=== PATIENT | male | born 1970 ===

== ENCOUNTER 2017-04-09 08:10 | Outpatient (CLI) | payer OTHER | END 2017-04-09 08:25 | disposition home or self-care (01) | LOC: OFIC 805 08:10 | DX: H60.8X2 Other otitis externa, left ear (principal) ==

== ENCOUNTER 2022-09-24 12:33 | Outpatient (CLI) | payer OTHER ==
[~2022-09-24 12:33] MED LIST: ATORVASTATIN CA10 MG; HYDROCHLOROTH12.5 MG; LOSARTAN POTASS50 MG
== END 2022-09-24 12:48 | disposition home or self-care (01) ==
LOC: SONOGRAMA 12:33
PROVIDERS: ATTEND Physical Medicine & Rehabilitation
DX: M75.82 Other shoulder lesions, left shoulder (principal)